=== PATIENT | male | born 1960 | race African-American/Black ===

== ENCOUNTER 2021-06-10 14:58 | Inpatient (IN) | payer MEDICAID, OTHER ==
[~2021-06-10] VITALS: Ht 177.8 cm; Wt 80.9 kg
[~2021-06-10 14:58] MED LIST: TAMS0.4C31 PO
[2021-06-10] MEDS ORDERED: ONDANSETRON HCL 4MG/2ML INJ IV ONE (16:30)
[2021-06-10] MEDS ORDERED: SODIUM CHLORIDE 0.9% 1,000 ML IV ONE ×2 (16:30→18:00)
[2021-06-10 17:01] LABS: HEMOGLOBIN. 11.2 g/dL (14.0-18.0); MEAN CORPUSCULAR HEMOGLOBIN 28.2 pg (28.0-32.0); MEAN CORPUSCULAR VOLUME 83.3 fL (80.0-94.0); MEAN PLATELET VOLUME 8.4 fl (7.4-10.4); PLATELET 328 x1000/uL (130-400); RED BLOOD CELL COUNT 3.96 mill/uL (4.7-6.1); RED CELL DISTRIBUTION WIDTH 13.1 % (11.6-14.6)
[2021-06-10 17:04] LABS: CHLORIDE 100 mEq/L (98-107)
[2021-06-10 17:08] LABS: ETHANOL BLOOD < 10 mg/dL
[2021-06-10 17:12] LABS: CREATINE KINASE 64 IU/L (39-308)
[2021-06-10] MEDS ORDERED: FUROSEMIDE 100MG/10ML VIAL IV STA (17:53)
[2021-06-10] MEDS ORDERED: ALBUTEROL (0.083%) 2.5MG/3ML NEB HHN ONE (18:00)
[2021-06-10] MEDS ORDERED: INSULIN REGULAR (HUMULIN R) 300UNITS/3ML VIAL IV ONE (18:00)
[2021-06-10] MEDS ORDERED: DEXTROSE 50% WATER 50ML SYRINGE IV ONE (18:00)
[2021-06-10] MEDS ORDERED: CALCIUM CHLORIDE 1GM/10ML SYR IV ONE (18:00)
[2021-06-10 18:07] LABS: PLATELET ESTIMATE NORMAL
[2021-06-10] MEDS ORDERED: LORAZEPAM 2MG/ML CPJ IV ONE (20:45)
[2021-06-10] MEDS ORDERED: ALBUTEROL (0.083%) 2.5MG/3ML NEB HHN NR (23:00)
[2021-06-10 23:34] LABS: CLARITY URINE CLEAR (CLEAR); COLOR URINE YELLOW (YELLOW); KETONES URINE NEGATIVE (NEGATIVE); LEUKOCYTE ESTERASE URINE NEGATIVE (NEGATIVE); NITRITE URINE NEGATIVE (NEGATIVE); OCCULT BLOOD URINE NEGATIVE (NEGATIVE); PROTEIN URINE NEGATIVE (NEGATIVE); SPECIFIC GRAVITY URINE 1.014 (1.005-1.030); UROBILINOGEN URINE 0.2 E.U./dL (0.2-1.0)
[2021-06-10 23:54] LABS: *BARBITURATES SCREEN URINE NEGATIVE (NEGATIVE); *BENZODIAZEPINES SCREEN URINE NEGATIVE (NEGATIVE)
[2021-06-10 23:55] LABS: *AMPHETAMINES SCREEN URINE NEGATIVE (NEGATIVE); *COCAINE SCREEN URINE PRESUMTIVE POSITIVE (NEGATIVE); CANNABINOID URINE SCREEN NEGATIVE (NEGATIVE); METHADONE URINE SCREEN NEGATIVE (NEGATIVE); OPIATES URINE SCREEN NEGATIVE (NEGATIVE); PHENCYCLIDINE URINE SCREEN NEGATIVE (NEGATIVE)
[2021-06-11] VITALS (9 sets, daily range): BP systolic 125–153; BP diastolic 86–106
[2021-06-11 00:04] LABS: CHLORIDE 105 mEq/L (98-107)
[2021-06-11] MEDS ORDERED: SODIUM BICARBONATE 8.4% 1 MEQ/ML 50ML SYR IV NR (01:30)
[2021-06-11] MEDS ORDERED: INSULIN REGULAR (HUMULIN R) 300UNITS/3ML VIAL IV NR (01:30)
[2021-06-11] MEDS ORDERED: DEXTROSE 50% WATER 50ML SYRINGE IV NR (01:30)
[2021-06-11] MEDS ORDERED: SODIUM POLYSTYRENE SULFONATE 15 G/60 ML BOT PO NR (01:45)
[2021-06-11 01:55] LABS: HEPATITIS B SURFACE ANTIGEN NEGATIVE
[2021-06-11 05:46] LABS: CHLORIDE 106 mEq/L (98-107)
[2021-06-11] MEDS: SODIUM BICARBONATE 100 MEQ in DEXTROSE 5% WATER 1,000 ML IV SCH ×2 (07:27→19:31)
[2021-06-11] MEDS ORDERED: IPRATROPIUM/ALBUTEROL 0.5-3(2.5)MG/3ML NEB HHN PRN (09:00)
[2021-06-11] MEDS ORDERED: DIPHENHYDRAMINE 50MG/ML VIAL IV PRN (09:00)
[2021-06-11] MEDS ORDERED: CLONIDINE 0.1MG TABLET PO PRN (09:00)
[2021-06-11] MEDS ORDERED: DEXTROSE 50% WATER 50ML SYRINGE IV PRN (09:15)
[2021-06-11] MEDS: BLOOD SUGAR DIAGNOSTIC STRIP TEST SCH ×3 (12:30→21:43)
[2021-06-11] MEDS ORDERED: TAMS-11 PO (12:48)
[2021-06-11] MEDS ORDERED: PNEUMOCOCCAL 23-VAL P-SAC VAC 0.5 ML IM ONE (13:15)
[2021-06-11 13:16] LABS: CARCINO EMBRYONIC ANTIGEN 2.5 ng/ml; PROSTRATE SPECIFIC AG TOTAL 3.98 ng/mL (0.0-4.0)
[2021-06-11] MEDS: INSULIN LISPRO 100 UNITS/ML SUBCUT SCH ×3 (13:55→21:00)
[2021-06-11] MEDS: ONDANSETRON HCL 4MG/2ML INJ IV PRN ×2 (16:12→21:12)
[2021-06-11] MEDS: ACETAMINOPHEN 325MG TABLET PO PRN (21:12)
[2021-06-11] MEDS ORDERED: INFLUENZA VACCINE 05/PF 0.5 ML SYRINGE IM ONE (22:00)
[2021-06-12] VITALS (11 sets, daily range): BP systolic 117–143; BP diastolic 52–102
[2021-06-12 04:07] LABS: CANCER ANTIGEN 125 15.4 U/mL (Not Estab.)
[2021-06-12] MEDS: SODIUM BICARBONATE 100 MEQ in DEXTROSE 5% WATER 1,000 ML IV SCH ×2 (05:36→17:34)
[2021-06-12 06:18] LABS: HEMATOCRIT. 33.1 % (42.0-52.0); MEAN CORPUSCULAR HEMOGLOBIN 27.8 pg (28.0-32.0); MEAN CORPUSCULAR VOLUME 83.9 fL (80.0-94.0); MEAN PLATELET VOLUME 8.7 fl (7.4-10.4); PLATELET 271 x1000/uL (130-400); RED BLOOD CELL COUNT 3.95 mill/uL (4.7-6.1); RED CELL DISTRIBUTION WIDTH 13.4 % (11.6-14.6)
[2021-06-12 06:32] LABS: CHLORIDE 102 mEq/L (98-107)
[2021-06-12 06:44] LABS: LDL CHOLESTEROL 62 mg/dL (5-100)
[2021-06-12 06:49] LABS: HDL CHOLESTEROL 31 mg/dL (40-59)
[2021-06-12] MEDS: BLOOD SUGAR DIAGNOSTIC STRIP TEST SCH ×4 (08:12→21:53)
[2021-06-12] MEDS: INSULIN LISPRO 100 UNITS/ML SUBCUT SCH ×4 (08:33→21:00)
[2021-06-12] MEDS: ONDANSETRON HCL 4MG/2ML INJ IV PRN ×2 (12:32→18:49)
[2021-06-12 22:35] LABS: PLATELET ESTIMATE NORMAL
[2021-06-13] VITALS (12 sets, daily range): BP systolic 96–125; BP diastolic 57–88
[2021-06-13] MEDS: SODIUM BICARBONATE 100 MEQ in DEXTROSE 5% WATER 1,000 ML IV SCH (04:19)
[2021-06-13] MEDS: ONDANSETRON HCL 4MG/2ML INJ IV PRN ×2 (04:23→15:47)
[2021-06-13 06:55] LABS: BASOPHILS % 0.2 % (0.0-2.0); EOSINOPHILS % 1.2 % (0.0-5.0); HEMATOCRIT. 29.8 % (42.0-52.0); HEMOGLOBIN. 10.1 g/dL (14.0-18.0); LYMPHOCYTES % 9.6 % (20.0-50.0); MEAN CORPUSCULAR VOLUME 82.8 fL (80.0-94.0); MEAN PLATELET VOLUME 8.7 fl (7.4-10.4); MONOCYTES % 11.2 % (2.0-8.0); NEUTROPHILS % 77.8 % (40.0-76.0); PLATELET 228 x1000/uL (130-400); RED BLOOD CELL COUNT 3.59 mill/uL (4.7-6.1); RED CELL DISTRIBUTION WIDTH 13.1 % (11.6-14.6)
[2021-06-13 07:09] LABS: PHOSPHORUS 7.3 mg/dL (2.5-4.9)
[2021-06-13] MEDS: INSULIN LISPRO 100 UNITS/ML SUBCUT SCH ×4 (08:00→21:00)
[2021-06-13] MEDS: BLOOD SUGAR DIAGNOSTIC STRIP TEST SCH ×4 (08:10→21:21)
[2021-06-13] MEDS ORDERED: POTASSIUM CHLORIDE 20MEQ/PACKET PO NR (11:15)
[2021-06-13] MEDS: SODIUM CHLORIDE 0.45% 1,000 ML IV SCH ×2 (11:28→20:55)
[2021-06-13] MEDS: ACETAMINOPHEN 325MG TABLET PO PRN (21:22)
[2021-06-14] VITALS (12 sets, daily range): BP systolic 82–123; BP diastolic 48–80
[2021-06-14] MEDS: SODIUM CHLORIDE 0.45% 1,000 ML IV SCH ×3 (04:19→20:39)
[2021-06-14] MEDS: ONDANSETRON HCL 4MG/2ML INJ IV PRN (04:19)
[2021-06-14] MEDS: BLOOD SUGAR DIAGNOSTIC STRIP TEST SCH ×4 (07:30→20:34)
[2021-06-14] MEDS: INSULIN LISPRO 100 UNITS/ML SUBCUT SCH ×4 (08:00→20:46)
[2021-06-14 08:08] LABS: BASOPHILS % 0.7 % (0.0-2.0); EOSINOPHILS % 1.7 % (0.0-5.0); HEMATOCRIT. 27.6 % (42.0-52.0); HEMOGLOBIN. 9.2 g/dL (14.0-18.0); LYMPHOCYTES % 9.3 % (20.0-50.0); MEAN CORPUSCULAR HEMOGLOBIN 27.8 pg (28.0-32.0); MEAN PLATELET VOLUME 9.1 fl (7.4-10.4); MONOCYTES % 10.9 % (2.0-8.0); NEUTROPHILS % 77.4 % (40.0-76.0); PLATELET 188 x1000/uL (130-400); RED BLOOD CELL COUNT 3.32 mill/uL (4.7-6.1); RED CELL DISTRIBUTION WIDTH 13.1 % (11.6-14.6)
[2021-06-14 08:18] LABS: PHOSPHORUS 4.9 mg/dL (2.5-4.9)
[2021-06-14] MEDS: ACETAMINOPHEN 325MG TABLET PO PRN (10:22)
[2021-06-15] VITALS (12 sets, daily range): BP systolic 94–125; BP diastolic 53–84
[2021-06-15] MEDS: SODIUM CHLORIDE 0.45% 1,000 ML IV SCH ×3 (04:02→19:20)
[2021-06-15] MEDS: BLOOD SUGAR DIAGNOSTIC STRIP TEST SCH ×4 (07:30→21:00)
[2021-06-15] MEDS: INSULIN LISPRO 100 UNITS/ML SUBCUT SCH ×4 (08:00→21:00)
[2021-06-15 10:49] LABS: BASOPHILS % 0.5 % (0.0-2.0); EOSINOPHILS % 1.7 % (0.0-5.0); HEMATOCRIT. 25.5 % (42.0-52.0); HEMOGLOBIN. 8.9 g/dL (14.0-18.0); LYMPHOCYTES % 8.3 % (20.0-50.0); MEAN CORPUSCULAR HEMOGLOBIN 29.1 pg (28.0-32.0); MEAN CORPUSCULAR VOLUME 83.7 fL (80.0-94.0); MEAN PLATELET VOLUME 8.2 fl (7.4-10.4); MONOCYTES % 10.8 % (2.0-8.0); NEUTROPHILS % 78.7 % (40.0-76.0); PLATELET 171 x1000/uL (130-400); RED BLOOD CELL COUNT 3.05 mill/uL (4.7-6.1); RED CELL DISTRIBUTION WIDTH 13.1 % (11.6-14.6)
[2021-06-15 10:57] LABS: INR 1.1; PROTHROMBIN TIME 11.4 sec (9.6-11.0)
[2021-06-15 10:58] LABS: CHLORIDE 100 mEq/L (98-107)
[2021-06-15 11:17] LABS: AMYLASE 140 IU/L (25-115)
[2021-06-16] VITALS (10 sets, daily range): BP systolic 97–133; BP diastolic 58–93
[2021-06-16] MEDS: SODIUM CHLORIDE 0.45% 1,000 ML IV SCH ×3 (03:49→20:24)
[2021-06-16] MEDS: BLOOD SUGAR DIAGNOSTIC STRIP TEST SCH ×4 (07:40→20:25)
[2021-06-16] MEDS: INSULIN LISPRO 100 UNITS/ML SUBCUT SCH ×4 (07:56→20:25)
[2021-06-16 08:57] LABS: BASOPHILS % 0.8 % (0.0-2.0); HEMATOCRIT. 25.3 % (42.0-52.0); HEMOGLOBIN. 8.5 g/dL (14.0-18.0); LYMPHOCYTES % 9.3 % (20.0-50.0); MEAN CORPUSCULAR HEMOGLOBIN 28.5 pg (28.0-32.0); MEAN CORPUSCULAR VOLUME 84.4 fL (80.0-94.0); MONOCYTES % 11.2 % (2.0-8.0); NEUTROPHILS % 76.7 % (40.0-76.0); PLATELET 162 x1000/uL (130-400)
[2021-06-16] MEDS: FINASTERIDE 5MG TABLET PO SCH (13:42)
[2021-06-16] MEDS: TAMSULOSIN HCL 0.4MG SR CAPSULE PO SCH (13:42)
[2021-06-17] MEDS: SODIUM CHLORIDE 0.45% 1,000 ML IV SCH ×2 (04:20→12:59)
[2021-06-17 04:22] VITALS: BP 109/66
[2021-06-17] MEDS: BLOOD SUGAR DIAGNOSTIC STRIP TEST SCH ×4 (07:30→21:00)
[2021-06-17] MEDS: INSULIN LISPRO 100 UNITS/ML SUBCUT SCH ×4 (08:00→21:00)
[2021-06-17] MEDS: FINASTERIDE 5MG TABLET PO SCH (08:15)
[2021-06-17 08:19] VITALS: BP 117/70
[2021-06-17] MEDS: TAMSULOSIN HCL 0.4MG SR CAPSULE PO SCH (08:19)
[2021-06-17 08:39] LABS: BASOPHILS % 0.7 % (0.0-2.0); EOSINOPHILS % 1.8 % (0.0-5.0); HEMATOCRIT. 24.7 % (42.0-52.0); HEMOGLOBIN. 8.2 g/dL (14.0-18.0); LYMPHOCYTES % 8.9 % (20.0-50.0); MEAN CORPUSCULAR HEMOGLOBIN 28.3 pg (28.0-32.0); MEAN CORPUSCULAR VOLUME 85.5 fL (80.0-94.0); MONOCYTES % 11.4 % (2.0-8.0); NEUTROPHILS % 77.2 % (40.0-76.0); PLATELET 172 x1000/uL (130-400); RED BLOOD CELL COUNT 2.89 mill/uL (4.7-6.1)
[2021-06-17 12:00] VITALS: BP 114/68
[2021-06-17 16:00] VITALS: BP 96/58
[2021-06-18 06:43] LABS: BASOPHILS % 1.2 % (0.0-2.0); EOSINOPHILS % 2.1 % (0.0-5.0); HEMATOCRIT. 22.9 % (42.0-52.0); HEMOGLOBIN. 7.8 g/dL (14.0-18.0); LYMPHOCYTES % 10.6 % (20.0-50.0); MEAN CORPUSCULAR HEMOGLOBIN 28.4 pg (28.0-32.0); MEAN CORPUSCULAR VOLUME 83.4 fL (80.0-94.0); MEAN PLATELET VOLUME 8.7 fl (7.4-10.4); MONOCYTES % 12.5 % (2.0-8.0); NEUTROPHILS % 73.6 % (40.0-76.0); PLATELET 180 x1000/uL (130-400); RED BLOOD CELL COUNT 2.75 mill/uL (4.7-6.1); RED CELL DISTRIBUTION WIDTH 12.6 % (11.6-14.6)
[2021-06-18] MEDS: BLOOD SUGAR DIAGNOSTIC STRIP TEST SCH ×4 (07:52→20:34)
[2021-06-18 08:00] VITALS: BP 95/63
[2021-06-18] MEDS: INSULIN LISPRO 100 UNITS/ML SUBCUT SCH ×4 (08:00→20:52)
[2021-06-18] MEDS: FINASTERIDE 5MG TABLET PO SCH ×2 (09:00→09:45)
[2021-06-18] MEDS: TAMSULOSIN HCL 0.4MG SR CAPSULE PO SCH ×2 (09:00→09:45)
[2021-06-18 12:00] VITALS: BP 112/72
[2021-06-18] MEDS ORDERED: FINA5TAB11 PO (14:46)
[2021-06-18 16:00] VITALS: BP 104/71
[2021-06-18 19:55] VITALS: BP 121/95
[2021-06-18] MEDS: ACETAMINOPHEN 325MG TABLET PO PRN (21:07)
[2021-06-19] VITALS: BP 94/55
[2021-06-19 04:00] VITALS: BP 99/55
[2021-06-19 05:34] LABS: EOSINOPHILS % 2.3 % (0.0-5.0); HEMATOCRIT. 24.3 % (42.0-52.0); HEMOGLOBIN. 8.1 g/dL (14.0-18.0); LYMPHOCYTES % 10.7 % (20.0-50.0); MEAN CORPUSCULAR HEMOGLOBIN 28.3 pg (28.0-32.0); MEAN CORPUSCULAR VOLUME 84.9 fL (80.0-94.0); MEAN PLATELET VOLUME 8.5 fl (7.4-10.4); PLATELET 200 x1000/uL (130-400); RED BLOOD CELL COUNT 2.86 mill/uL (4.7-6.1)
[2021-06-19] MEDS: BLOOD SUGAR DIAGNOSTIC STRIP TEST SCH ×3 (07:39→17:30)
[2021-06-19 08:00] VITALS: BP 117/79
[2021-06-19] MEDS: INSULIN LISPRO 100 UNITS/ML SUBCUT SCH ×3 (08:00→18:00)
[2021-06-19] MEDS: FINASTERIDE 5MG TABLET PO SCH (08:18)
[2021-06-19] MEDS: TAMSULOSIN HCL 0.4MG SR CAPSULE PO SCH (08:21)
[2021-06-19 12:00] VITALS: BP 107/74
[2021-06-19 12:07] VITALS: BP 112/69
== END 2021-06-19 18:30 | disposition left against medical advice (07) | DRG 501 ==
LOC: ER 14:58 → MICUSO 19:30 → 5EST 06-11 09:39
PROVIDERS: ADMIT Internal Medicine; ATTEND Internal Medicine
DX: N40.1 Benign prostatic hyperplasia with lower urinary tract symptoms (principal); N17.0 Acute kidney failure with tubular necrosis; C22.8 Malignant neoplasm of liver, primary, unspecified as to type; K85.90 Acute pancreatitis without necrosis or infection, unspecified; N13.30 Unspecified hydronephrosis; E87.2 Acidosis; N13.8 Other obstructive and reflux uropathy; K80.10 Calculus of gallbladder with chronic cholecystitis without obstruction; D64.9 Anemia, unspecified; E87.5 Hyperkalemia; N13.9 Obstructive and reflux uropathy, unspecified; J45.909 Unspecified asthma, uncomplicated; R73.03 Prediabetes; R73.9 Hyperglycemia, unspecified; R63.4 Abnormal weight loss; N32.89 Other specified disorders of bladder; K82.8 Other specified diseases of gallbladder; Z20.822 Contact with and (suspected) exposure to COVID-19; R59.0 Localized enlarged lymph nodes; Z53.29 Procedure and treatment not carried out because of patient's decision for other reasons; F14.90 Cocaine use, unspecified, uncomplicated; Z87.891 Personal history of nicotine dependence; Z68.25 Body mass index [BMI] 25.0-25.9, adult
CPT/HCPCS: 36415; 71045; 71250; 74176; 74181; 76700; 80048; 80053; 80061; 80076; 80305; 80320; 81003; 82105; 82140; 82150; 82248; 82378; 82550; 82962; 83036; 83605; 83735; 83880; 84100; 84153; 84443; 84484; 85025; 86301; 86304; 86705; 86709; 86803; 86850; 86900; 87340; 87426; 90686; 90732; 93005; 94644; 97162; 99291; J1200; J1815; J1940; J2060; J2405; J3490; J7030; J7070; A4315; G0103; G0480

== ENCOUNTER 2021-08-15 03:30 | Emergency (ER) | payer OTHER ==
[~2021-08-15] VITALS: Ht 190.5 cm; Wt 91.0 kg
[~2021-08-15 03:30] MED LIST changes: +FINA5TAB11 PO; +TAMS-11 PO; -TAMS0.4C31 PO
[2021-08-15 03:34] VITALS: BP 124/60
[2021-08-15 04:34] LABS: BASOPHILS % 1.6 % (0.0-2.0); EOSINOPHILS % 2.3 % (0.0-5.0); HEMATOCRIT. 25.4 % (42.0-52.0); HEMOGLOBIN. 8.4 g/dL (14.0-18.0); LYMPHOCYTES % 13.8 % (20.0-50.0); MEAN CORPUSCULAR HEMOGLOBIN 29.9 pg (28.0-32.0); MEAN CORPUSCULAR VOLUME 90.8 fL (80.0-94.0); MEAN PLATELET VOLUME 8.3 fl (7.4-10.4); MONOCYTES % 5.7 % (2.0-8.0); NEUTROPHILS % 76.6 % (40.0-76.0); PLATELET 247 x1000/uL (130-400); RED CELL DISTRIBUTION WIDTH 15.3 % (11.6-14.6)
[2021-08-15 04:46] LABS: CHLORIDE 108 mEq/L (98-107)
[2021-08-15 05:32] LABS: CLARITY URINE CLEAR (CLEAR); COLOR URINE YELLOW (YELLOW); KETONES URINE NEGATIVE (NEGATIVE); LEUKOCYTE ESTERASE URINE 1+ (NEGATIVE); NITRITE URINE NEGATIVE (NEGATIVE); OCCULT BLOOD URINE TRACE (NEGATIVE); PROTEIN URINE NEGATIVE (NEGATIVE); SPECIFIC GRAVITY URINE 1.011 (1.005-1.030); UROBILINOGEN URINE 0.2 E.U./dL (0.2-1.0)
== END 2021-08-15 06:09 | disposition home or self-care (01) ==
LOC: ER 03:30
DX: N40.1 Benign prostatic hyperplasia with lower urinary tract symptoms (principal); R33.8 Other retention of urine; J45.909 Unspecified asthma, uncomplicated
CPT/HCPCS: 36415; 51702; 80053; 81003; 85025; 99284

== ENCOUNTER 2023-04-12 17:21 | Inpatient (IN) | payer OTHER ==
[~2023-04-12] VITALS: Ht 188 cm; Wt 66.7 kg
[2023-04-12] MEDS ORDERED: SODIUM CHLORIDE 0.9% 1000ML BAG (SEPSIS BOLUS) IV ONE (17:45)
[2023-04-12] MEDS ORDERED: MORPHINE SULFATE 4 MG/ML CPJ (NOT FOR IM USE) IV ONE (17:45)
[2023-04-12 18:44] LABS: CHLORIDE 100 mEq/L (98-107); POTASSIUM 4.1 mEq/L (3.5-5.1); SODIUM 133 mEq/L (136-145)
[2023-04-12 18:46] LABS: INDEX HEMOLYSI 3 (1-3); INDEX ICTERIC 3 (1-4); INDEX LIPEMIC 1 (1-3)
[2023-04-12 18:54] LABS: ALANINE AMINOTRANSFERASE 56 IU/L (13-61); ASPARTATE AMINOTRANSFERASE 63 IU/L (15-37); BILIRUBIN TOTAL 6.5 mg/dL (0.1-1.0); CALCIUM 8.1 mg/dL (8.5-10.1); CARBON DIOXIDE 26 mEq/L (21-32); CREATININE 2.6 mg/dL (0.6-1.3); GLUCOSE 86 mg/dL (70-105); NT PRO B-TYPE NATRIURETIC PEP 636 pg/mL (5-125); PROTEIN TOTAL 5.6 g/dL (6.0-8.3); TROPONIN I HIGH SENSITIVITY 43 ng/L (<78); UREA NITROGEN BLOOD 59 mg/dL (7-21)
[2023-04-12 18:58] LABS: INR 1.4; PARTIAL THROMBOPLASTIN TIME 26.4 sec (23.4-31.0); PROTHROMBIN TIME 14.8 sec (9.6-11.0)
[2023-04-12 18:59] LABS: HEMATOCRIT. 37.4 % (42.0-52.0); HEMOGLOBIN. 12.4 g/dL (14.0-18.0); MEAN CORPUSCULAR HEMOGLOBIN 28.6 pg (28.0-32.0); MEAN CORPUSCULAR HGB CONC 33.2 g/dL (31.0-37.0); MEAN CORPUSCULAR VOLUME 86.3 fL (80.0-94.0); PLATELET 125 x1000/uL (130-400); RED BLOOD CELL COUNT 4.34 mill/uL (4.7-6.1); RED CELL DISTRIBUTION WIDTH 18.8 % (11.6-14.6); WHITE BLOOD COUNT 4.3 x1000/uL (4.5-11.0)
[2023-04-12 19:01] LABS: DIFFERENTIAL COMMENT 1
[2023-04-12 20:59] LABS: ANISOCYTOSIS 1+; HYPOCHROMASIA 1+; TARGET CELLS 1+
[2023-04-12 21:00] LABS: PLATELET ESTIMATE SLIGHTLY DECREASED
[2023-04-12] MEDS: SODIUM CHLORIDE 0.9% 1,000 ML IV SCH (23:30)
[2023-04-12] MEDS ORDERED: ONDANSETRON HCL 4MG/2ML INJ IV PRN (23:30)
[2023-04-12] MEDS ORDERED: IPRATROPIUM/ALBUTEROL 0.5-3(2.5)MG/3ML NEB HHN PRN (23:30)
[2023-04-12] MEDS ORDERED: DOCUSATE SODIUM 100MG CAPSULE PO PRN (23:30)
[2023-04-12] MEDS ORDERED: ACETAMINOPHEN 325MG TABLET PO PRN ×2 (23:30)
[2023-04-12] MEDS ORDERED: HYDROCODONE/ACETAMINOPHEN 5/325MG TABLET PO PRN (23:30)
[2023-04-12] MEDS ORDERED: LORAZEPAM 0.5MG TABLET PO PRN (23:30)
[2023-04-12] MEDS ORDERED: MORPHINE SULFATE 2 MG/ML CPJ (NOT FOR IM USE) IV PRN (23:30)
[2023-04-12] MEDS ORDERED: MAGNESIUM/ALUMINUM HYDROXIDE/SIMETHICONE 30ML UDC PO PRN (23:30)
[2023-04-13 05:45] LABS: HEMATOCRIT. 32.8 % (42.0-52.0); HEMOGLOBIN. 10.8 g/dL (14.0-18.0); MEAN CORPUSCULAR HEMOGLOBIN 28.7 pg (28.0-32.0); MEAN CORPUSCULAR HGB CONC 33.1 g/dL (31.0-37.0); MEAN CORPUSCULAR VOLUME 86.7 fL (80.0-94.0); MEAN PLATELET VOLUME 9.5 fl (7.4-10.4); PLATELET 138 x1000/uL (130-400); RED BLOOD CELL COUNT 3.78 mill/uL (4.7-6.1); RED CELL DISTRIBUTION WIDTH 18.4 % (11.6-14.6); WHITE BLOOD COUNT 4.4 x1000/uL (4.5-11.0)
[2023-04-13 05:52] LABS: CALCIUM 8.1 mg/dL (8.5-10.1); CHLORIDE 105 mEq/L (98-107); INDEX HEMOLYSI 2 (1-3); INDEX ICTERIC 3 (1-4); INDEX LIPEMIC 1 (1-3); POTASSIUM 4.1 mEq/L (3.5-5.1); SODIUM 134 mEq/L (136-145)
[2023-04-13 06:10] LABS: ALANINE AMINOTRANSFERASE 52 IU/L (13-61); ALBUMIN 1.7 g/dL (3.4-5.0); ASPARTATE AMINOTRANSFERASE 56 IU/L (15-37); CARBON DIOXIDE 23 mEq/L (21-32); CHOLESTEROL 350 mg/dL (<200); CREATININE 2.3 mg/dL (0.6-1.3); GLUCOSE 84 mg/dL (70-105); HDL CHOLESTEROL 7 mg/dL (40-59); LDL CHOLESTEROL 316 mg/dL (5-100); TRIGLYCERIDE 135 mg/dL (0-150); UREA NITROGEN BLOOD 58 mg/dL (7-21)
[2023-04-13 06:15] LABS: DIFFERENTIAL COMMENT 1
[2023-04-13 08:36] LABS: CLARITY URINE CLEAR (CLEAR); COLOR URINE DARK YELLOW (YELLOW); GLUCOSE URINE NEGATIVE (NEGATIVE); KETONES URINE NEGATIVE (NEGATIVE); LEUKOCYTE ESTERASE URINE TRACE (NEGATIVE); NITRITE URINE NEGATIVE (NEGATIVE); OCCULT BLOOD URINE NEGATIVE (NEGATIVE); PH URINE 5.5 (4.5-8.0); PROTEIN URINE 1+ (NEGATIVE); SPECIFIC GRAVITY URINE 1.016 (1.005-1.030); UROBILINOGEN URINE 0.2 E.U./dL (0.2-1.0)
[2023-04-13 08:43] LABS: *AMPHETAMINES SCREEN URINE NEGATIVE (NEGATIVE); *BARBITURATES SCREEN URINE NEGATIVE (NEGATIVE); *BENZODIAZEPINES SCREEN URINE NEGATIVE (NEGATIVE); *COCAINE SCREEN URINE NEGATIVE (NEGATIVE); CANNABINOID URINE SCREEN NEGATIVE (NEGATIVE); ECSTASY MDMA SCREEN URINE NEGATIVE (NEGATIVE); METHADONE URINE SCREEN NEGATIVE (NEGATIVE); OPIATES URINE SCREEN PRESUMTIVE POSITIVE (NEGATIVE); PHENCYCLIDINE URINE SCREEN NEGATIVE (NEGATIVE)
[2023-04-13 08:55] LABS: SQUAMOUS EPITHELIAL CELL URINE FEW /lpf (RARE/1+)
[2023-04-13 08:57] LABS: BACTERIA URINE 1+; RBC URINE NONE SEEN /hpf (0-2); WBC URINE 0-2 /hpf (0-2)
[2023-04-13 10:07] LABS: ANISOCYTOSIS 1+; PLATELET ESTIMATE NORMAL; TARGET CELLS 2+
[2023-04-13 10:08] LABS: HYPOCHROMASIA 1+
[2023-04-13] MEDS: SODIUM CHLORIDE 0.9% 1,000 ML IV SCH ×2 (11:16→23:31)
[2023-04-13] MEDS ORDERED: NALOXONE HCL 0.4MG/ML VIAL IV PRN (11:30)
[2023-04-13 12:00] VITALS: BP_SYST 89; BP_SYST 90; BP_DIAS 47; BP_DIAS 56; PULSE 76; PULSE 79; RESP 18; RESP 20; TEMP 97.7; TEMP 98.5
[2023-04-13 12:22] LABS: INDEX HEMOLYSI 3 (1-3)
[2023-04-13 12:30] LABS: CREATINE KINASE 69 IU/L (39-308); CREATINE KINASE MB FRACTION < 1.0 ng/mL (0.5-3.6)
[2023-04-13 12:56] LABS: TROPONIN I HIGH SENSITIVITY 30 ng/L (<78)
[2023-04-13] MEDS ORDERED: FURO-151 MT (15:58)
[2023-04-13 16:00] VITALS: BP 97/67; PULSE 80; RESP 18; TEMP 97.8
[2023-04-13 16:55] LABS: CREATINE KINASE MB FRACTION 1.1 ng/mL (0.5-3.6)
[2023-04-13] MEDS ORDERED: SODIUM CHLORIDE 0.9% 500 ML IV NR (18:05)
[2023-04-13] MEDS: FINASTERIDE 5MG TABLET PO SCH (18:58)
[2023-04-13] MEDS: TAMSULOSIN HCL 0.4MG SR CAPSULE PO SCH (18:59)
[2023-04-13 20:00] VITALS: BP 100/66; PULSE 80; RESP 18; TEMP 97.7
[2023-04-13] MEDS ORDERED: ENOXAPARIN 40MG/0.4ML SYR SUBCUT SCH (21:00)
[2023-04-13] MEDS: CEFTRIAXONE 1,000 MG in DEXTROSE 5% WATER 50 ML IV SCH ×2 (21:42→22:09)
[2023-04-14] VITALS: BP 86/55; PULSE 86; RESP 19; TEMP 98
[2023-04-14 04:00] VITALS: BP 88/58; PULSE 85; RESP 19; TEMP 97.3
[2023-04-14] MEDS: SODIUM CHLORIDE 0.9% 1,000 ML IV SCH (04:24)
[2023-04-14 07:26] LABS: HEMATOCRIT. 35.2 % (42.0-52.0); HEMOGLOBIN. 11.7 g/dL (14.0-18.0); MEAN CORPUSCULAR HEMOGLOBIN 29.2 pg (28.0-32.0); MEAN CORPUSCULAR HGB CONC 33.3 g/dL (31.0-37.0); MEAN CORPUSCULAR VOLUME 87.8 fL (80.0-94.0); PLATELET 116 x1000/uL (130-400); RED BLOOD CELL COUNT 4.01 mill/uL (4.7-6.1); RED CELL DISTRIBUTION WIDTH 18.6 % (11.6-14.6); WHITE BLOOD COUNT 4.7 x1000/uL (4.5-11.0)
[2023-04-14 07:32] LABS: DIFFERENTIAL COMMENT 1
[2023-04-14 08:00] VITALS: BP 100/70; PULSE 81; RESP 22; TEMP 96
[2023-04-14 08:00] LABS: CALCIUM 7.8 mg/dL (8.5-10.1); POTASSIUM 4.3 mEq/L (3.5-5.1)
[2023-04-14 08:05] LABS: CREATININE 2.3 mg/dL (0.6-1.3)
[2023-04-14] MEDS ORDERED: FUROSEMIDE 40MG/4ML VIAL IVP SCH (09:00)
[2023-04-14] MEDS: TAMSULOSIN HCL 0.4MG SR CAPSULE PO SCH (09:38)
[2023-04-14] MEDS: FINASTERIDE 5MG TABLET PO SCH (09:38)
[2023-04-14 12:00] VITALS: BP 110/73; PULSE 96; RESP 20; TEMP 96.7
[2023-04-14 16:00] VITALS: BP 100/65; PULSE 81; RESP 18; TEMP 96
[2023-04-14 17:23] VITALS: BP 105/68; PULSE 80; TEMP 98; O2SAT 97
[2023-04-14] MEDS ORDERED: CEFTRIAXONE 1,000 MG in DEXTROSE 5% WATER 50 ML IV SCH (20:00)
[2023-04-14 23:54] LABS: PLATELET ESTIMATE NORMAL
== END 2023-04-14 20:15 | disposition home or self-care (01) | DRG 281 ==
LOC: ER 17:21 → MICUSO 21:10 → EDBEDREQ 21:21 → 8WST 04-13 11:18
PROVIDERS: ADMIT Internal Medicine; ATTEND Internal Medicine
DX: C78.7 Secondary malignant neoplasm of liver and intrahepatic bile duct (principal); N17.9 Acute kidney failure, unspecified; D64.9 Anemia, unspecified; J45.909 Unspecified asthma, uncomplicated; N39.0 Urinary tract infection, site not specified; Z51.5 Encounter for palliative care; Z85.05 Personal history of malignant neoplasm of liver
CPT/HCPCS: 36415; 71045; 74176; 80048; 80053; 80061; 80305; 81003; 82550; 82553; 83605; 83880; 84145; 84443; 84484; 85025; 93005; 93306; 93970; 97162; 99285; J0696; J2270; J7030; J7060